=== PATIENT | female | born 1970 | race American Indian/Alaskan Native ===

== ENCOUNTER 2016-11-12 17:58 | Emergency (ER) | payer MEDICARE ==
[2016-11-12 19:29] LABS: Eosinophils % (Auto) 0.5 % (0.0-4.3); Hematocrit 42.7 % (30.3-42.9); Mean Corpuscular HGB Conc 33 % (30-34); Mean Corpuscular Hemoglobin 29 pg (28-32); Mean Corpuscular Volume 89 fl (79-97); Platelet Count 157 K/mm3 (140-440); Red Blood Count 4.81 M/mm3 (3.65-5.03)
[2016-11-12 19:47] LABS: Alanine Aminotransferase 20 units/L (7-56); Albumin 3.8 g/dL (3.9-5); Albumin/Globulin Ratio 1.1 %; Alkaline Phosphatase 68 units/L (35-129); Anion Gap 18 mmol/L; BUN/Creatinine Ratio 23.33; Blood Urea Nitrogen 21 mg/dL (7-17); Calcium 8.9 mg/dL (8.4-10.2); Carbon Dioxide 19 mmol/L (22-30); Chloride 104.7 mmol/L (98-107); Glucose 115 mg/dL (65-100); Lipase 22 units/L (13-60); Potassium 4.2 mmol/L (3.6-5.0); Sodium 137 mmol/L (137-145); Total Protein 7.4 g/dL (6.3-8.2)
[2016-11-12] MEDS ORDERED: NACL 0.9% 1000 ML 1,000 ML IV ONE (21:06)
[2016-11-12] MEDS ORDERED: ZOFRAN IV ONE (21:06)
[2016-11-12] MEDS ORDERED: MORPHINE IV ONE (21:14)
[2016-11-12] MEDS ORDERED: PEPCID IV ONE (21:14)
[2016-11-12] MEDS ORDERED: REGLAN IV ONE (21:14)
--- NOTE | 2016-11-12 21:14 | Emergency Department Report ---
HPI - General Chief Complaint: Abdominal Pain Time Seen by Provider: 11/12/16 20:56 - HPI HPI: Room 5 The patient is a 46-year-old female presenting with a chief complaint of nausea vomiting and diarrhea. Patient states her symptoms began Friday evening at approximately 16:00 with nausea vomiting and diarrhea. Has had over 10 episodes of vomiting and diarrhea per day. Denies abdominal pain. Patient denies sick contacts. Patient denies fever. Patient denies any recent antibiotic use. Patient has been able to tolerate her medications until today stating she vomited them back up Location: Gastrointestinal system Duration: Constant 3 days Quality: Painless Severity: Moderate Modifying factors: [see above] Context: [see above] Mode of transportation: Unknown ED Past Medical Hx - Past Medical History Hx Diabetes: Yes Additional medical history: IBS. hypotension. 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, [place] 2008) - Family History Family history: no significant - Social History Smoking Status: Never Smoker Substance Use Type: None - Medications Home Medications: Home Medications Medication Instructions Recorded Confirmed Last Taken Type Aspirin TAB 325 mg PO DAILY 11/12/16 11/12/16 Unknown History AtorvaSTATin [Lipitor] 20 mg PO QHS 11/12/16 11/12/16 Unknown History Calcium Carbonate/Vitamin D3 800 units PO QMONTH 11/12/16 11/12/16 Unknown History [Calcium 500 + Vit D3 400 Tab] Chlorpheniramine Maleate [Allergy 1 tab PO DAILY PRN 11/12/16 11/12/16 Unknown History Relief] Diphenoxylate HCl/Atropine 2 each PO QID PRN #20 tablet 11/12/16 Unknown Rx [Lomotil 2.5-0.025 mg Tablet] Fludrocortisone [Florinef Tab] 0.1 mg PO DAILY 11/12/16 11/12/16 Unknown History Furosemide [Lasix TAB] 40 mg PO BID 11/12/16 11/12/16 Unknown History Loperamide [Imodium] 2 mg PO DAILY 11/12/16 11/12/16 Unknown History Mycophenolate [Cellcept] 3 cap PO BID 11/12/16 11/12/16 Unknown History Omeprazole 20 mg PO DAILY 11/12/16 11/12/16 Unknown History Ondansetron [Zofran ODT TAB] 8 mg PO Q8HR #20 tab.rapdis 11/12/16 Unknown Rx Prednisone [predniSONE 5 mg (6-Day 5 mg PO DAILY 11/12/16 11/12/16 Unknown History Pack, 21 Tabs)] Promethazine [Phenergan] 25 mg VA Q6HR PRN #5 supp.rect 11/12/16 Unknown Rx Tacrolimus [Prograf] 3 mg PO BID 11/12/16 11/12/16 Unknown History diphenhydrAMINE [Benadryl CAP] 25 mg PO Q8HR PRN 11/12/16 11/12/16 Unknown History ED Review of Systems ROS: Stated complaint: N/V/D Other details as noted in HPI Comment: All other systems reviewed and negative Constitutional: denies: chills, fever Eyes: denies: eye pain, eye discharge, vision change ENT: denies: ear pain, throat pain Respiratory: denies: cough, shortness of breath, wheezing Cardiovascular: denies: chest pain, palpitations Endocrine: no symptoms reported Gastrointestinal: nausea, vomiting, diarrhea. denies: abdominal pain Genitourinary: denies: urgency, dysuria, discharge Musculoskeletal: denies: back pain, joint swelling, arthralgia Skin: denies: rash, lesions Neurological: denies: headache, weakness, paresthesias Psychiatric: denies: anxiety, depression Hematological/Lymphatic: denies: easy bleeding, easy bruising Physical Exam - Physical Exam Vital Signs: Vital Signs 11/12/16 11/12/16 18:19 19:05 Temperature 99.2 F Pulse Rate 89 Respiratory 18 18 Rate Blood Pressure 90/59 [Right] O2 Sat by Pulse 96 96 Oximetry Physical Exam: GENERAL: The patient is well-developed well-nourished female lying on stretcher not appearing to be in acute distress. [] HEENT: Normocephalic. Atraumatic. Extraocular motions are intact. Patient has moist mucous membranes. NECK: Supple. Trachea midline CHEST/LUNGS: Clear to auscultation. There is no respiratory distress noted. HEART/CARDIOVASCULAR: Regular. There is no tachycardia. There is no gallop rub or murmur. ABDOMEN: Abdomen is soft, with discomfort to palpation epigastric, right lower quadrant and left lower quadrant but no rebound or guarding. Patient has normal bowel sounds. There is no abdominal distention. SKIN: There is no rash. There is no edema. There is no diaphoresis. NEURO: The patient is awake, alert, and oriented. The patient is cooperative. The patient has normal speech MUSCULOSKELETAL: There is no evidence of acute injury. ED Course Vital Signs 11/12/16 11/12/16 18:19 19:05 Temperature 99.2 F Pulse Rate 89 Respiratory 18 18 Rate Blood Pressure 90/59 [Right] O2 Sat by Pulse 96 96 Oximetry - Consultations Consultation #1: 11/12/16 21:17 [place] transplant called 11/12/16 21:30 Case discussed with transplant surgeon Dr. Watkins- states that if patient is able to tolerate by mouth she may be discharged however the patient is unable to tolerate by mouth she will be happy to accept the patient in transfer. 11/12/16 23:17 Patient tolerating po ED Medical Decision Making - Lab Data Result diagrams: 11/12/16 19:09 11/12/16 19:09 Laboratory Tests 11/12/16 11/12/16 19:09 19:09 WBC 7.0 RBC 4.81 Hgb 14.0 Hct 42.7 MCV 89 MCH 29 MCHC 33 RDW 14.0 Plt Count 157 Lymph % (Auto) 4.4 L [place] % (Auto) 6.6 Eos % (Auto) 0.5 Baso % (Auto) 0.0 Lymph # 0.3 L [place] # 0.5 Eos # 0.0 Baso # 0.0 Seg Neutrophils % 88.5 H Seg Neutrophils # 6.2 Sodium 137 Potassium 4.2 Chloride 104.7 Carbon Dioxide 19 L Anion Gap 18 BUN 21 H Creatinine 0.9 Estimated GFR > 60 BUN/Creatinine Ratio 23.33 Glucose 115 H Calcium 8.9 Total Bilirubin 0.60 AST 21 ALT 20 Alkaline Phosphatase 68 Total Protein 7.4 Albumin 3.8 L Albumin/Globulin Ratio 1.1 Lipase 22 - Differential Diagnosis gastroenteritis, transplant rejection, Critical care attestation.: If time is entered above; I have spent that time in minutes in the direct care of this critically ill patient, excluding procedure time. ED Disposition Clinical Impression: Gastroenteritis, Nausea vomiting and diarrhea Disposition: DC-01 TO HOME OR SELFCARE Is pt being admited?: No Does the pt Need Aspirin: No Condition: Stable Instructions: Abdominal Pain (ED) Additional Instructions: Return to the emergency department immediately should you develop worsening symptoms, fever, inability to tolerate food or liquid or any other concerns. Prescriptions: Diphenoxylate HCl/Atropine [Lomotil 2.5-0.025 mg Tablet] 2 each PO QID PRN #20 tablet PRN Reason: Diarrhea Ondansetron [Zofran ODT TAB] 8 mg PO Q8HR #20 tab.rapdis Promethazine [Phenergan] 25 mg VA Q6HR PRN #5 supp.rect PRN Reason: Vomiting Referrals: PRIMARY CARE, [Primary Care Provider] - 3-[address] Durant, transplant surgery [place] [Other] - [facility] Time of Disposition: 23:19
[2016-11-13 00:33] VITALS: BP 112/64
== END 2016-11-12 23:45 | disposition home or self-care (01) ==
LOC: ED 17:58
DX: K52.9 Noninfective gastroenteritis and colitis, unspecified (principal); R19.7 Diarrhea, unspecified; E11.9 Type 2 diabetes mellitus without complications; Z79.82 Long term (current) use of aspirin
CPT/HCPCS: 36415; 80053; 83690; 85025; 96361; 96374; 96375; 99284; J2405; J7030